=== PATIENT | male | born 1950 | race Caucasian/White ===

== ENCOUNTER 2017-04-09 07:41 | Day surgery (SDC) | payer BC ==
[~2017-04-09] VITALS: Ht 172.7 cm; Wt 92.5 kg
[~2017-04-09 07:41] MED LIST: ASPI81 PO; EFFIENT PO; NITR0.4S SL; NORV2.5T11 PO; RANEXA PO; ROSU40 PO; TOPR100T15 PO
[2017-04-09] MEDS ORDERED: IOHEXOL 350 MG/ML 100 ML BTL (for Cath Lab) OTHER ONE (07:42)
[2017-04-09 08:14] VITALS: BP 144/87; PULSE 64; RESP 18; TEMP 98.1; O2SAT 99
[2017-04-09] MEDS ORDERED: TAMS0.4C4 PO (08:20)
[2017-04-09] MEDS ORDERED: ASPI-516 CHEW (08:20)
[2017-04-09] MEDS ORDERED: AMLO5TAB2 PO (08:20)
[2017-04-09] MEDS ORDERED: PLAV75TA29 PO (08:20)
[2017-04-09] MEDS ORDERED: NITR0.4D T-DERMAL (08:20)
[2017-04-09] MEDS ORDERED: METO1TAB43 PO (08:20)
[2017-04-09] MEDS ORDERED: NORV2.5T PO (08:20)
[2017-04-09] MEDS ORDERED: ATOR80TA45 PO (08:20)
[2017-04-09 08:21] LABS: AUTOMATED NEUTROPHIL # 2.6 TH/MM3 (1.8-7.7); BASOPHIL # 0.1 TH/MM3 (0-0.2); EOSINOPHIL # 0.2 TH/MM3 (0-0.4); EOSINOPHIL % 3.1 % (0.0-4.0); HEMATOCRIT 44.5 % (39.0-51.0); HEMO FLAGS DIFF FINAL; LYMPH % 34.8 % (9.0-44.0); LYMPHOCYTE # 1.8 TH/MM3 (1.0-4.8); MEAN CELL VOLUME 91.3 FL (80.0-100.0); MEAN CORPUSCULAR HEMOGLOBIN 31.1 PG (27.0-34.0); MEAN CORPUSCULAR HGB CONC 34.1 % (32.0-36.0); MONO % 10.9 % (0.0-8.0); NEUT % 50.2 % (16.0-70.0); PLATELET COUNT 164 TH/MM3 (150-450); RED BLOOD COUNT 4.88 MIL/MM3 (4.50-5.90); RED CELL DISTRIBUTION WIDTH 13.2 % (11.6-17.2); WHITE BLOOD COUNT 5.2 TH/MM3 (4.0-11.0)
[2017-04-09 08:34] LABS: APTT (PATIENT) 26.6 SEC (24.3-30.1); PROTHROMBIN TIME - PATIENT 11.4 SEC (9.8-11.6)
[2017-04-09 08:41] LABS: BICARBONATE 30.7 MEQ/L (21.0-32.0); POTASSIUM 3.4 MEQ/L (3.5-5.1)
[2017-04-09] MEDS ORDERED: ASPIRIN 325 MG TAB PO SCH (09:00)
[2017-04-09] MEDS ORDERED: diphenhydrAMINE HCL 50 MG/ML VIAL IV PUSH SCH (09:00)
[2017-04-09] MEDS ORDERED: methylPREDNISolone SOD SUCC 40 MG/1 ML VIAL IV PUSH SCH (09:00)
[2017-04-09] MEDS ORDERED: NS 1000P @30 MLS/HR (KVO) IV SCH (09:00)
[2017-04-09] MEDS ORDERED: HEPARIN-NS/PF INJ 1,000 ML ONE (09:45)
[2017-04-09] MEDS ORDERED: MIDAZOLAM HCL 2 MG/2 ML VIAL ONE ×2 (09:47→10:33)
[2017-04-09] MEDS ORDERED: POTASSIUM CHLOR 20 MEQ PREMIX 100 ML IV ONE (10:00)
[2017-04-09] MEDS ORDERED: BIVALIRUDIN 250 MG VIAL ONE (10:28)
[2017-04-09] MEDS ORDERED: MORPHINE SULFATE 8 MG/ML INJ ONE (10:59)
[2017-04-09] MEDS ORDERED: CLOPIDOGREL 300 MG TAB ONE (11:04)
--- NOTE | 2017-04-09 11:20 | CATHPROC ---
[email or web address] HIS Report Study Information Study Number Admission Scheduled Start Study Start [id number] Apr 09 2017 7:41AM 04/09/2017 Apr 09 2017 9:34AM [place] Service Cardiac Catheterization Admit Source Facility Department Other [facility] - Junior Software Engineer Physician and Clinical Staff Initial Benjamin Aj Cloth Handler Amanuel RN, Chencho Cloth HandlerDomonique Melendez BSN Recorder Roro Martinez,RT(R) (BS) ScrJuliette Garcia,RT(R) Procedures Performed Procedure Location (Site) Vessel Name Coronary Angiograms LCA Left Coronary Coronary Angiograms RCA Right Coronary Coronary Angiograms AREVALO-LAD Left Coronary Drug Eluting Inflatio AREVALO-LAD Left Coronary IVUS Fem Art (right) Femoral Art L Heart Cath Wire insertion Fem Art (right) Femoral Art Equipment Time Coagulator Description Size Mfg Part Number Used/Scraped TRANSDUCER, OLU [id number] 09:34 ELIKE * Used W/STOCKCOCK *[id number] 10:29 [employer]more WIRE, CHOICE PT 182CM 182CM Used *[id number] *[id number] *[id number] [id number] *[id number] [id number] *[id number] 11:00 DAIG/ST. TWYLA MEDICAL ANGIOSEAL, FR6 VIP FR 6 Used *[id number] 09:34 MEDLINE INDUSTRIES PACK, CCL CUSTOM * Used *[id number] 09:34 MEDLINE PACER PEN, SKIN DUAL W/ RULER * Used *[id number] 10:47 MEDTRONIC STENT, 3.5 12MM JAYLA 3.5 12MM Used *[id number] 10:58 [employer] STENT, 3.5 8MM JAYLA 3.5 8MM Used *[id number] 10:48 [employer] MEDICAL 30 JCARLOS INDEFLATOR Used *[id number] 09:34 [employer] MEDICAL SHEATH, FR6.5 PRELUDE 11CM FR 6.5 038ACT Used *[id number] 09:34 [employer] MEDICAL WIRE, 3MMJ .035 180CM 180CM Used *[id number] 09:34 NAMIC MANIFOLD, 4 PORT * Used *[id number] 09:34 [employer]COMED OMNIPAQUE, 350 MG, 100ML 100ML [id number] Used [id number] 09:34 [employer] MEDICAL BLANKET,WARM AIR CCL * Used *[id number] CATHETER, [employer] [place] [id number] 10:33 [employer]OL[employer] Used IMAGING *[id number] Equipment Model, Serial, Lot Number and Expiration Data Description Model Number Serial Number Lot Number Expiration Date ANGIOSEAL, MARIPOSA VIP [id number] 12-09-2017 STENT, 3.5 12MM JAYLA [id number] 11-28-2018 History: Current Medications Medication Dosage/Unit Route Frequency Last Date/Time Taken Statins (any) Beta Stanislav ASA EFFIENT History: Allergies Allergy Reaction iodine History: Risk Factors Family History of Hypertension Dyslipidemia Previous VT Previous Heart Failure Premature CAD Yes Yes No No No Prior Valve Prior PCI Prior CABG Surgery No Yes Yes Cerebrovascular Peripheral Artery Chronic Lung On Dialysis Diabetes Disease Disease Disease No No No No No History: Stress Tests Stress or Imaging Studies Performed No History: Other Current Smoker No Labs Hgb (g/dl) Hct (%) WBC (l/cumm) Platelets (thousands) 11.60-17.00 35.00-51.00 4.00-11.00 150.00-450.00 15.2 44.5 5.2 164 Glucose (mg/dl) BUN (mg/dl) Creatinine (mg/dl) BUN:Creatinine (1:x) 74.00-106.00 7.00-18.00 0.50-1.30 10.00-20.00 114 13 1.3 10 Na (meq/l) K (meq/l) 136.00-145.00 3.50-5.10 139 3.4 INR (PTT:PT) 0.90-1.10 1 CPK-MB (ng/ML) 0.50-3.60 Not Drawn Medication Medication Total Dose (Bolus/Oral) Medication Total Dosage/Unit 1% XYLOCAINE 20 mL ANGIOMAX BOLUS 13.9 mL MORPHINE 2 mg NTG (IC) 150 mcg PLAVIX 300 mg POTASSIUM CHLORIDE 10 meq/hr VERSED 3 mg Medications (Bolus/Oral) Medication Time Given Dosage/Unit Administered By Reason POTASSIUM CHLORIDE 04/09/2017 9:52:58 AM 10 meq/hr Chencho Vital RN 10 meq/hr POTASSIUM CHLORIDE given in lab by Chencho Vital RN in Left Antecubital via Peripheral IV. 04/09/2017 10:06:48 VERSED 1 mg Amanuel PALOMARES, Chencho AM 1 mg VERSED given in lab by Amanuel PALOMARES, Chencho in Left Antecubital via Peripheral IV. 04/09/2017 10:08:40 VERSED 1 mg Amanuel PALOMARES, Chencho AM 1 mg VERSED given in lab by Chencho Vital RN in Left Antecubital via Peripheral IV. 04/09/2017 10:09:10 1% XYLOCAINE 20 mL Amanuel PALOMARES, Chencho AM 20 mL 1% XYLOCAINE given in lab by Chencho Vital RN in Left Antecubital via Subcutaneous. 04/09/2017 10:29:53 ANGIOMAX BOLUS 13.9 mL Amanuel PALOMARES, Chencho AM 13.9 mL ANGIOMAX BOLUS given in lab by Chencho Vital RN in Left Antecubital via Peripheral IV. 04/09/2017 10:40:47 VERSED 1 mg Amanuel PALOMARES, Chencho AM 1 mg VERSED given in lab by Chencho Vital RN in Left Antecubital via Peripheral IV. 04/09/2017 10:48:22 NTG (IC) 150 mcg Benjamin Myrick AM 150 mcg NTG (IC) given in lab by Benjamin Myrick via Intra-coronary. 04/09/2017 11:06:22 PLAVIX 300 mg Chencho Vital RN AM 300 mg PLAVIX given in lab by Chencho Vital RN via Oral. 04/09/2017 11:11:54 MORPHINE 2 mg Amanuel PALOMARES, Chencho AM 2 mg MORPHINE given in lab by Chencho Vital RN in Left Antecubital via Peripheral IV. Medication (Drip) Medication Time Given Dosage/Unit Concentration/Unit Diluent (ml) Solution 04/09/2017 10:33:52 ANGIOMAX DRIP 1.755 mg/kg/hr 250 mg 50 NaCl .9 AM 1.755 mg/kg/hr ANGIOMAX DRIP given in lab by Chencho Vital RN in Left Antecubital via Peripheral IV. P ump/Drip Flow = 32.4 ml/hr using NaCl .9 with a concentration of 250 mg in 50 ml. ANGIOMAX DRIP 04/09/2017 11:02:07 0 units/hr 0 STOPPED AM 0 units/hr ANGIOMAX DRIP STOPPED given by Chencho Vital RN. Pump/Drip Flow = 0 ml/hr using [Solution N petty]. IV Solutions 04/09/2017 9:45:33 AM 0 mL (IV) 500 NaCl .9 Patient arrived on IV Solutions in Left Antecubital via Peripheral IV. Pump/Drip Flow = 30 ml/hr usin g NaCl .9. Initial Case Assessment Cardiovascular HR Rhythm NIBP Chest Pain 86 reg 133/86 0 Edema Present Skin color Skin None Normal Warm Dry Circulatory - Right Pulses Dorsalis Pedis Femoral 2 2 Scale (0,1,2,3,4,d) Circulatory - Left Pulses Dorsalis Pedis Femoral 2 2 Scale (0,1,2,3,4,d) Circulatory - Lower Extremities Color Lower Right Color Lower Left Normal Normal Neurological State Oriented to time-place- Alert Moves all extremities person Respiration - General Respiration Rate SpO2 (%) (B/min) 15 98 Chronological Log Time Study Chronological Log 9:42:07 Patient arrived via Bed. 9:42:11 Patient Name, D.O.B, / Armband Verified By R.N. 9:42:13 Consent signed by the physician and the patient and verified by the Junior Software Engineer staff. 9:43:23 Pt was premedicated for iodine allergy in DOCU prior to transport to labor arbitrator hearing office 9:45:17 Pre-op and post- op instructions given; patient acknowledges understanding of instructions. 9:45:18 Verbal Stimulation=2 Physical Stimulation=2 Airway=2 Respiration=2 TOTAL=8. (0=absent, 1=li mited, 2=present) 9:45:19 Presedation assessment performed by Junior Software Engineer RN. 9:45:27 Patient has been NPO for More than 6Hrs. 9:45:28 Skin Breakdown none per pt 9:45:28 Patient Warmer Placed on the Table. 9:45:32 Gaby Prominences Protected 9:45:33 A # 20 IV was noted in the Antecubital (left). Grade = 0 9:45:33 Patient arrived on IV Solutions in Left Antecubital via Peripheral IV. Pump/Drip Flow = 30 ml/hr using NaCl .9. 9:45:34 History and physical on the chart or being dictated. Assessment: Initial Case, HR=86 BPM, Rhythm=reg, IFJI=150/86 mmhg, Chest Pain=0, Edema=None, Co magy=Normal, Skin = Warm, Dry Right Pulses: Yonatan Ped=2, Femoral=2 Left Pulses: Yonatan Ped=2, Femoral=2 9:45:36 Lower Right Extremities: Color=Normal Lower Left Extremities: Color=Normal Neurological: State=Alert, Ox3, STROUD Respiration: Resp=15 B/min, SpO2=98 % Vitals capture started with the following parameters, Patient=Adult, Interval=5 min, Initial Pr nkmjrd=234 mmHg, 9:49:19 Deflation Rate=5 mmHg, Cuff placed on Left Arm 9:50:03 HR=82 bpm, OEIA=685/86 mmhg, SpO2=99.0 %, Resp=16 B/min, Pain=0, Sue=10, Scott=2 9:52:42 Bilateral groins prepped with 2% chlorhexidine, and draped after a 3 minute waiting time. 9:52:58 10 meq/hr POTASSIUM CHLORIDE given in lab by Chencho Vital RN in Left Antecubital via Periphe ral IV. 9:54:58 HR=88 bpm, IMNH=939/84 mmhg, SpO2=99.0 %, Resp=11 B/min, Pain=0, Sue=10, Scott=2 9:56:33 Reference ECG taken 9:56:54 Pressure channel 1 zeroed. 9:57:07 MD paged 10:00:34 MD arrived 10:00:38 HR=73 bpm, NSCW=021/51 mmhg, SpO2=94.0 %, Resp=12 B/min, Pain=0, Sue=10, Scott=2 Time Out. Correct patient, correct procedure, correct physician, power injector not loaded with contrast with surgical 10:05:04 team present. Time Out Concurred by MD and individual staff in procedure. 10:05:15 Case Start 10:05:19 HR=74 bpm, ZTSZ=580/89 mmhg, SpO2=97.0 %, Resp=17 B/min, Pain=0, Sue=10, Scott=2 10:06:48 1 mg VERSED given in lab by Chencho Vital RN in Left Antecubital via Peripheral IV. 10:08:40 1 mg VERSED given in lab by Chencho Vital RN in Left Antecubital via Peripheral IV. 10:09:10 20 mL 1% XYLOCAINE given in lab by Chencho Vital RN in Left Antecubital via Subcutaneous. 10:09:57 HR=75 bpm, OEUH=867/80 mmhg, SpO2=95.0 %, Resp=15 B/min, Pain=0, Seu=10, Scott=2 10:10:26 Access site was Right Femoral Artery. 10:10:45 A SHEATH, FR6.5 PRELUDE 11CM FR 6.5 was advanced into the Fem Art (right) using the Percuta neous technique. A JL 5.0 INFINITI CATHETER FR 6 was advanced over a wire. OMNIPAQUE, 350 MG, 100ML 100ML was us ed for 10:11:39 injections. Recorded Pressure: Ao, HR=73, Condition=Condition 1 10:13:04 (Aorta) Ao 112/70/89 10:13:43 The LCA was injected and visualized at various angles. OMNIPAQUE, 350 MG, 100ML 100ML used . 10:14:58 HR=74 bpm, RNNZ=170/79 mmhg, SpO2=96.0 %, Resp=15 B/min, Pain=0, Sue=10, Scott=2 10:15:08 Catheter was removed A 3DRC INFINITI CATHETER FR 6 was advanced over a wire. OMNIPAQUE, 350 MG, 100ML 100ML was used for 10:15:10 injections. 10:17:14 The RCA was injected and visualized at various angles. OMNIPAQUE, 350 MG, 100ML 100ML used . 10:19:13 Catheter was removed A PANKAJ INFINITI CATHETER FR 6 was advanced over a wire. OMNIPAQUE, 350 MG, 100ML 100ML was used for 10:19:14 injections. 10:19:55 HR=77 bpm, LKVF=749/78 mmhg, SpO2=94.0 %, Resp=18 B/min, Pain=0, Sue=10, Scott=2 10:22:40 The AREVALO-LAD was injected and visualized at various angles. OMNIPAQUE, 350 MG, 100ML 100ML used. 10:25:00 HR=76 bpm, DEHH=107/78 mmhg, SpO2=95.0 %, Resp=12 B/min, Pain=0, Sue=10, Scott=2 10:26:37 Catheter was removed 10:29:53 HR=75 bpm, DCVV=647/90 mmhg, SpO2=89.0 %, Resp=11 B/min, Pain=0, Sue=10, Scott=2 10:29:53 13.9 mL ANGIOMAX BOLUS given in lab by Chencho Vital RN in Left Antecubital via Peripheral I V. 10:30:43 A PANKAJ GUIDE CATHETER FR 6 was advanced over a wire. OMNIPAQUE, 350 MG, 100ML 100ML was used for injections. 1.755 mg/kg/hr ANGIOMAX DRIP given in lab by Chencho Vital RN in Left Antecubital via Peripheral IV. Pump/Drip Flow = 10:33:52 32.4 ml/hr using NaCl .9 with a concentration of 250 mg in 50 ml. 10:34:24 A WIRE, 3MMJ .035 180CM 180CM was inserted via Fem Art (right). 10:35:00 HR=72 bpm, MLGD=455/76 mmhg, SpO2=94.0 %, Resp=21 B/min, Pain=0, Sue=10, Scott=2 10:37:29 A WIRE, CHOICE PT 182CM 182CM was inserted via Fem Art (right). 10:39:11 An CATHETER, [employer] [place] [employer] was advanced through the lesion. Images saved onto IVUS hard drive 10:39:57 HR=71 bpm, WDIH=749/79 mmhg, SpO2=92.0 %, Resp=22 B/min, Pain=0, Sue=10, Scott=2 10:40:47 1 mg VERSED given in lab by Chencho Vital RN in Left Antecubital via Peripheral IV. 10:44:04 IVUS catheter removed 10:45:01 HR=74 bpm, MWDY=017/76 mmhg, SpO2=90.0 %, Resp=20 B/min, Pain=0, Sue=10, Scott=2 A STENT, 3.5 12MM JAYLA 3.5 12MM was advanced through a PANKAJ GUIDE CATHETER FR 6 over a WIRE, CHO ICE PT 10:46:08 182CM 182CM. A STENT, 3.5 12MM JAYLA 3.5 12MM was deployed using a 30 JCARLOS INDEFLATOR at 16 atmospheres for 17 seconds in 10:47:32 the AREVALO-LAD. 10:48:22 150 mcg NTG (IC) given in lab by Benjamin Myrick via Intra-coronary. 10:49:21 Delivery device removed 10:49:58 HR=77 bpm, YNVX=460/78 mmhg, SpO2=88.0 %, Resp=25 B/min, Pain=0, Sue=10, Scott=2 10:50:33 An CATHETER, [employer] [place] [employer] was advanced through the lesion. Images saved onto IVUS hard drive 10:54:49 IVUS catheter removed 10:55:01 HR=76 bpm, QMIV=330/78 mmhg, SpO2=91.0 %, Resp=22 B/min, Pain=0, Sue=10, Scott=2 A STENT, 3.5 8MM JAYLA 3.5 8MM was advanced through a PANKAJ GUIDE CATHETER FR 6 over a WIRE, CHOIC E PT 10:55:28 182CM 182CM. A STENT, 3.5 8MM JAYLA 3.5 8MM was deployed using a 30 JCARLOS INDEFLATOR at 15 atmospheres for 20 s econds in the 10:56:08 AREVALO-LAD. 10:57:47 Delivery device removed 10:57:53 Catheter was removed 10:57:57 Wire removed 10:59:15 An injection in the Fem Art (right) was made through the SHEATH, FR6.5 PRELUDE 11CM FR 6.5. 10:59:58 HR=83 bpm, HHWJ=780/81 mmhg, SpO2=92.0 %, Resp=24 B/min, Pain=0, Sue=10, Scott=2 11:02:07 0 units/hr ANGIOMAX DRIP STOPPED given by Chencho Vital RN. Pump/Drip Flow = 0 ml/hr using [ Solution Name]. 11:04:33 Case End 11:05:01 HR=71 bpm, AJYV=324/65 mmhg, SpO2=92.0 %, Resp=20 B/min, Pain=0, Sue=10, Scott=2 11:06:21 Catheter(s) removed without difficulty 11:06:22 300 mg PLAVIX given in lab by Chencho Vital RN via Oral. 11:06:25 Sterile dressing applied to site 11:06:26 No case complications noted. 11:06:32 A Left Heart Cath was performed. 11:06:56 DOCU called. Spoke to Gabino. 11:09:58 HR=69 bpm, IWOH=760/75 mmhg, SpO2=91.0 %, Resp=14 B/min, Pain=0, Sue=10, Scott=2 11:11:54 2 mg MORPHINE given in lab by Chencho Vital RN in Left Antecubital via Peripheral IV. 11:12:53 Vitals capture stopped. 11:13:46 Patient moved to [facility] End Study - Contrast Media Used In Study Contrast Total Opened (mL) Total Used (mL) Total Wasted (mL) Omnipaque 100 100 0 End Study - Maximum Contrast Load Max Contrast Load (mL) 355.1 End Study - Radiation Exposure Fluoro Time (minutes) 13.5 End Study - Patient Disposition Complications Transferred To Interventional Outcome No Junior Software Engineer Holding successful
[2017-04-09] MEDS ORDERED: BIVALIRUDIN INJ 250 MG in SODIUM CHLORIDE 0.9% INJ 50 ML IV SCH (11:23)
[2017-04-09] MEDS ORDERED: SODIUM CHLOR 0.9% 1000 ML INJ 1,000 ML IV SCH (11:23)
[2017-04-09] MEDS ORDERED: SODIUM CHLORIDE 0.9% FLUSH 10 ML FLUSH IV FLUSH PRN (11:30)
[2017-04-09] MEDS ORDERED: oxyCODONE/ACETAMINOPHEN 5 MG/325 MG TAB PO PRN (11:30)
[2017-04-09] MEDS ORDERED: MISC INFORMATION XX ONE (11:30)
[2017-04-09] MEDS ORDERED: ACETAMINOPHEN 325 MG TAB PO PRN (11:30)
[2017-04-09] MEDS ORDERED: ONDANSETRON HCL 4 MG/2 ML VIAL IV PUSH PRN (11:30)
--- NOTE | 2017-04-09 11:44 | MA ---
cc: JYOTSNA BANUELOS M.D. DATE: 04/09/2017 PROCEDURE PERFORMED 1. Coronary angiography. 2. Left internal mammary arteriography. 3. Intravascular ultrasound and drug-eluting stent implantation of the left internal mammary bypass graft. BRIEF HISTORY Fredis Sahu is a 66-year-old man with premature coronary artery disease. He had bypass surgery at age 46. By 2003 the vein graft to the right coronary artery had closed. He has had three separate stent procedures of the right coronary artery. He had two stent procedures of the vein graft to the diagonal and obtuse marginal branch which was found to be completely closed on a cath in May 2015. He has had severe angina and has already been through the first round of EECP . After the second round of EECP he still had class IV angina and for this reason cardiac catheterization was advised. DESCRIPTION OF PROCEDURE The patient was brought to the cardiac cath lab radiology technician in a fasting state. The right groin was prepped and draped in sterile fashion. Using 1% lidocaine for local anesthesia a 6.5 Indian sheath was inserted in the right femoral artery requiring only a single stick. Coronary angiography was then completed using a left 5 Nain for the left coronary artery and a 3-D RC for the right coronary artery. Imaging of the left internal mammary bypass graft was then performed using an PANKAJ catheter. He was found to have a severe stenosis in the proximal portion of the graft with the appearance of a dissection. Intravascular ultrasound confirmed a severe stenosis with a flap dissection. Intravenous Angiomax was started. I used a 6 Indian PANKAJ guiding catheter to engage the mammary. I crossed the lesion with a Choice Floppy wire. IVUS was performed. I stented it with a 3.5 x 12 mm Resolute Carter stent at 15 atmospheres. There was some plaque at the end of the stent so I placed a second 3.5 x 8 mm Resolute [place] extent in overlapping fashion and deployed that also at 15 atmospheres. Angiography demonstrates a good result. The patient tolerated the procedure well. The guide was removed. The sheath was removed. An Angio-Seal device was deployed with good hemostasis. There were no complications. FINDINGS HEMODYNAMICS Aortic pressure is 112/70 with a mean of 89. CORONARY ANGIOGRAPHY The left main coronary artery is large and normal-appearing. The left anterior descending artery is totally occluded after a couple of small septals and a 50% small disease diagonal branch. The circumflex artery has occlusion of the obtuse marginal branch. The circumflex is fairly large with irregularities and gives off two posterolateral branches. The first posterolateral branch has 20% disease. The second posterolateral branch has at least 30% disease. The right coronary is a dominant vessel, has diffuse irregularities but no significant stenosis is seen. There may be about 20% proximal narrowing and 30% narrowing before the crux. RESULTS OF INTERVENTION Following stenting of the proximal left internal mammary graft the stenosis and dissection has been completely relieved with no residual stenosis. PLAN The patient will be continued on aspirin and Plavix indefinitely. Anticipate discharge home this evening if stable. MD ULISES Dupont/OSVALDO /11:13 AM /11:23 AM
--- NOTE | 2017-04-09 13:29 | EKG ---
Date Performed: 04/09/2017 Time Performed: 08:24:12 PTAGE: 66 years EKG: Sinus rhythm Leftward axis Right bundle branch block Lateral ST-T changes are nonspecific Abnormal ECG Compared t o prior electrocardiogram, Right bundle branch block is present. PREVIOUS TRACING : 12/13/2009 09.13 DOCTOR: Keenan Whitney Interpretating Date/Time 04/09/2017 13:28:02
[2017-04-09] MEDS ORDERED: SODIUM CHLORIDE 0.9% FLUSH 10 ML FLUSH IV FLUSH SCH (21:00)
[2017-04-10] MEDS ORDERED: CLOPIDOGREL 75 MG TAB PO SCH (09:00)
[2017-04-10] MEDS ORDERED: ASPIRIN 81 MG CHEW TAB PO SCH (09:00)
== END 2017-04-09 18:15 | disposition home or self-care (01) ==
LOC: HCAT 07:41 → HDIC 07:42 → HCAT 18:15
PROVIDERS: ATTEND Internal Medicine Cardiovascular Disease
DX: I25.110 Atherosclerotic heart disease of native coronary artery with unstable angina pectoris (principal); I10 Essential (primary) hypertension; E78.00 Pure hypercholesterolemia, unspecified; E66.9 Obesity, unspecified; Z68.31 Body mass index [BMI] 31.0-31.9, adult
CPT/HCPCS: 80048; 85025; 85610; 85730; 92928; 92978; 93005; 93454; 99152; 99153; C1753; C1760; C1769; C1874; C1887; C1893; G0269; J0583; J1200; J1644; J2250; J2270; J2920; J3480; J7030; Q9967

== ENCOUNTER 2017-09-24 06:41 | Day surgery (SDC) | payer BC ==
[~2017-09-24 06:41] MED LIST changes: +AMLO5TAB2 PO; +ASPI-516 CHEW; -ASPI81 PO; +ATOR80TA45 PO; -EFFIENT PO; +METO1TAB43 PO; +NITR0.4D T-DERMAL; -NITR0.4S SL; +NORV2.5T PO; -NORV2.5T11 PO; +PLAV75TA29 PO; -RANEXA PO; -ROSU40 PO; +TAMS0.4C4 PO; -TOPR100T15 PO
[2017-09-24] MEDS ORDERED: IOHEXOL 350 MG/ML 100 ML BTL (for Cath Lab) OTHER ONE (06:42)
[2017-09-24 07:32] VITALS: BP 167/88; PULSE 64; RESP 18; TEMP 97.8; O2SAT 98
[2017-09-24 07:45] LABS: AUTOMATED NEUTROPHIL # 2.3 TH/MM3 (1.8-7.7); BASOPHIL # 0.1 TH/MM3 (0-0.2); BASOPHIL % 1.3 % (0.0-2.0); EOSINOPHIL # 0.2 TH/MM3 (0-0.4); EOSINOPHIL % 3.8 % (0.0-4.0); HEMATOCRIT 43.3 % (39.0-51.0); HEMOGLOBIN 14.5 GM/DL (13.0-17.0); LYMPH % 35.1 % (9.0-44.0); LYMPHOCYTE # 1.6 TH/MM3 (1.0-4.8); MEAN CELL VOLUME 90.2 FL (80.0-100.0); MEAN CORPUSCULAR HEMOGLOBIN 30.1 PG (27.0-34.0); MEAN CORPUSCULAR HGB CONC 33.4 % (32.0-36.0); MEAN PLATELET VOLUME 8.1 FL (7.0-11.0); MONOCYTE # 0.5 TH/MM3 (0-0.9); NEUT % 49.8 % (16.0-70.0); PLATELET COUNT 165 TH/MM3 (150-450); RED BLOOD COUNT 4.81 MIL/MM3 (4.50-5.90); RED CELL DISTRIBUTION WIDTH 13.6 % (11.6-17.2); WHITE BLOOD COUNT 4.6 TH/MM3 (4.0-11.0)
[2017-09-24 08:06] LABS: BICARBONATE 29.4 MEQ/L (21.0-32.0); CALCIUM 8.5 MG/DL (8.5-10.1); CREATININE 1.23 MG/DL (0.60-1.30)
[2017-09-24] MEDS ORDERED: MIDAZOLAM HCL 2 MG/2 ML VIAL ONE (10:46)
[2017-09-24] MEDS ORDERED: HEPARIN SODIUM - IV 10,000 UNITS/10 ML VIAL ONE (10:46)
[2017-09-24] MEDS ORDERED: NITROGLYCERIN INJ 5 ML ONE (10:46)
[2017-09-24] MEDS ORDERED: HEPARIN-NS/PF FLUSH BAG 2,000 ML IV FLUSH ONE (10:46)
[2017-09-24] MEDS ORDERED: diphenhydrAMINE HCL 50 MG/ML VIAL ONE (10:57)
[2017-09-24] MEDS ORDERED: methylPREDNISolone SOD SUCC 125 MG/2 ML VIAL ONE (10:58)
[2017-09-24] MEDS ORDERED: SODIUM CHLOR 0.9% 1000 ML INJ 1,000 ML IV SCH (11:43)
[2017-09-24] MEDS ORDERED: MISC INFORMATION XX ONE (11:45)
[2017-09-24] MEDS ORDERED: SODIUM CHLORIDE 0.9% FLUSH 10 ML FLUSH IV FLUSH PRN (11:45)
[2017-09-24] MEDS ORDERED: BACITRACIN OINT 0.9 GM PKT TOP ONE (11:45)
[2017-09-24] MEDS ORDERED: METOCLOPRAMIDE HCL 10 MG/2 ML VIAL IV PUSH PRN (11:45)
--- NOTE | 2017-09-24 12:00 | CATHPROC ---
IT'SUGAR HIS Report Study Information Study Number Admission Scheduled Start Study Start [id number] Sep 24 2017 6:41AM 09/24/2017 Sep 24 2017 10:40AM [place] Service Cardiac Catheterization Admit Source Facility Department Emergency department [facility] - Crime Lab Analyst Physician and Clinical Staff Initial Benjamin Aj Course Instructor Juliette Meneses,RT(R) Recorder Tania Farley ,RT(R) Scrub Yu Null RN Procedures Performed Procedure Location (Site) Vessel Name Coronary Angiograms LCA Left Coronary Coronary Angiograms RCA Right Coronary Coronary Angiograms AREVALO-LAD Left Coronary L Heart Cath Equipment Time Wardrobe Supervisor Description Size Mfg Part Number Used/Scraped TRANSDUCER, TRUWAVE [id number] 10:53 THOMAS PALENCIA * Used W/STOCKCOCK *[id number] *[id number] [id number] *[id number] [id number] *[id number] [id number] *[id number] 10:53 [employer]X IND[employer]ES PACK, CCL CUSTOM * Used *[id number] 10:53 [employer]X PACER PEN, SKIN DUAL W/ RULER * Used *[id number] 10:53 [employer] SHEATH, FR6.5 PRELUDE 11CM FR 6.5 038ACT Used *[id number] 10:53 [employer] WIRE, 3MMJ .035 180CM 180CM Used *[id number] 10:53 NAMIC MANIFOLD, 4 PORT * Used *[id number] 10:53 [employer]COMED OMNIPAQUE, 350 MG, 150ML 150ML [id number] Used [id number] 10:53 [facility] BLANKET,WARM AIR CCL * Used *[id number] History: Current Medications Medication Dosage/Unit Route Frequency Last Date/Time Taken Statins (any) Beta Stanislav NORVASC ASA PLAVIX NTG Patch History: Allergies Allergy Reaction No Known Allergies iodine History: Risk Factors Hypertension Dyslipidemia Previous KS Previous Heart Failure Yes Yes No No Prior Valve Prior PCI Prior PCIDate Prior CABG Prior CABGDate Surgery No Yes 04/09/2017 Yes 01/10/1997 Cerebrovascular Peripheral Artery Chronic Lung On Dialysis Diabetes Disease Disease Disease No No No No No History: Stress Tests Stress or Imaging Studies Performed Yes Standard Exercise Stress Test No Stress Echo No Stress Test SPECT Stress Test SPECT Result Stress Test SPECT Ischemia Risk/Extent Yes Positive High Stress Test CMR No Cardiac CTA Coronary Calcium Score No No History: Other Current Smoker No Labs Hgb (g/dl) Hct (%) WBC (l/cumm) Platelets (thousands) 11.60-17.00 35.00-51.00 4.00-11.00 150.00-450.00 14.5 43.3 4.6 165 Glucose (mg/dl) BUN (mg/dl) Creatinine (mg/dl) BUN:Creatinine (1:x) 74.00-106.00 7.00-18.00 0.50-1.30 10.00-20.00 106 14 1.2 11.7 Na (meq/l) K (meq/l) 136.00-145.00 3.50-5.10 144 3.7 CPK-MB (ng/ML) 0.50-3.60 Not Drawn Medication Medication Total Dose (Bolus/Oral) Medication Total Dosage/Unit 1% XYLOCAINE 10 mL BENADRYL 50 mg SOLU-MEDROL 50 mg VERSED 2 mg Medications (Bolus/Oral) Medication Time Given Dosage/Unit Administered By Reason BENADRYL 09/24/2017 11:00:11 AM 50 mg Hesher, Yu 50 mg BENADRYL given in lab by Yu Null, MARIELLE via Peripheral IV. Ordered by Benjamin Myrick. SOLU-MEDROL 09/24/2017 11:01:18 AM 50 mg Hesher, Yu 50 mg SOLU-MEDROL given in lab by Yu Null, MARIELLE via Peripheral IV. Ordered by Bnejamin Myrick. VERSED 09/24/2017 11:13:35 AM 2 mg Hesher, Yu 2 mg VERSED given in lab by Yu Null, RN in Left Antecubital via Peripheral IV. Ordered by Benjamin Lockett. 1% XYLOCAINE 09/24/2017 11:14:23 AM 10 mL Benjamin Myrick 10 mL 1% XYLOCAINE given in lab by Benjamin Myrick in Right Groin via Subcutaneous. Ordered by Benjamin Myrick. Medication (Drip) Medication Time Given Dosage/Unit Concentration/Unit Diluent (ml) Solution IV Solutions 09/24/2017 10:49:08 AM 50 mL (IV) NaCl .9 Patient arrived on IV Solutions in Left Antecubital via Peripheral IV. Pump/Drip Flow using NaCl .9. Initial Case Assessment Cardiovascular HR Rhythm NIBP Chest Pain 70 sr 159/107 0 Edema Present Skin color Skin None Normal Warm Dry Circulatory - Right Pulses Dorsalis Pedis Femoral 2 2 Scale (0,1,2,3,4,d) Circulatory - Left Pulses Dorsalis Pedis Femoral 2 2 Scale (0,1,2,3,4,d) Neurological State Oriented to time-place- Alert Moves all extremities person Respiration - General Respiration Rate SpO2 (%) (B/min) 28 99 Final Case Assessment Cardiovascular HR Rhythm NIBP Chest Pain 70 sr 159/107 0 Edema Present Skin color Skin None Normal Warm Dry Circulatory - Right Pulses Dorsalis Pedis Femoral 2 2 Scale (0,1,2,3,4,d) Circulatory - Left Pulses Dorsalis Pedis Femoral 2 2 Scale (0,1,2,3,4,d) Neurological State Oriented to time-place- Alert Moves all extremities person Respiration - General Respiration Rate SpO2 (%) (B/min) 28 99 Chronological Log Time Study Chronological Log 10:44:57 Patient arrived via Bed. 10:44:58 Patient Name, D.O.B, / Armband Verified By R.N. 10:44:59 Consent signed by the physician and the patient and verified by the Crime Lab Analyst staff. 10:45:00 Pre-op and post- op instructions given; patient acknowledges understanding of instructions. Vitals capture started with the following parameters, Patient=Adult, Interval=5 min, Initial Pr bjyimg=723 mmHg, 10:48:29 Deflation Rate=5 mmHg, Cuff placed on Left Arm 10:48:58 Verbal Stimulation=2 Physical Stimulation=2 Airway=2 Respiration=2 TOTAL=8. (0=absent, 1=li mited, 2=present) 10:49:01 Patient has been NPO for More than 6Hrs. 10:49:02 Skin Breakdown- none per patient 10:49:04 Patient Warmer Placed on the Table. 10:49:05 HR=74 bpm, ARCA=191/107 mmhg, SpO2=99.0 %, Resp=11 B/min, Pain=0, Sue=10, Scott=2 10:49:07 Gaby Prominences Protected 10:49:08 A # 20 IV was noted in the Antecubital (left). Grade = 0 10:49:08 Patient arrived on IV Solutions in Left Antecubital via Peripheral IV. Pump/Drip Flow using NaCl .9. 10:49:09 History and physical on the chart or being dictated. Assessment: Initial Case, HR=70 BPM, Rhythm=sr, THBJ=136/107 mmhg, Chest Pain=0, Edema=None, Co magy=Normal, Skin = Warm, Dry Right Pulses: Yonatan Ped=2, Femoral=2 10:49:10 Left Pulses: Yonatan Ped=2, Femoral=2 Neurological: State=Alert, Ox3, STROUD Respiration: Resp=28 B/min, SpO2=99 % 10:54:30 Bilateral groins prepped with 2% chlorhexidine, and draped after a 3 minute waiting time. 10:54:56 HR=71 bpm, IUSZ=026/115 mmhg, ZxX6=334.0 %, Resp=13 B/min, Pain=0, Sue=10, Scott=2 10:55:28 Reference ECG taken 10:55:42 Reference ECG taken 10:58:13 Pressure channel 1 zeroed. 10:58:35 MD paged 10:59:20 HR=68 bpm, KEST=136/57 mmhg, SpO2=98.0 %, Resp=22 B/min, Pain=0, Sue=10, Scott=2 11:00:11 50 mg BENADRYL given in lab by Yu Null, MARIELLE via Peripheral IV. Ordered by Doug Myrick 11:01:18 50 mg SOLU-MEDROL given in lab by Yu Null RN via Peripheral IV. Ordered by Benjamin Myrick. 11:02:48 MD arrived. 11:04:37 HR=68 bpm, GZUH=968/97 mmhg, SpO2=99.0 %, Resp=13 B/min, Pain=0, Sue=10, Scott=2 11:09:12 HR=66 bpm, SQLI=823/105 mmhg, SpO2=96.0 %, Resp=25 B/min, Pain=0, Sue=10, Scott=2 Time Out. Correct patient, correct procedure, correct physician, power injector not loaded with contrast with surgical 11:12:13 team present. Time Out Concurred by MD and individual staff in procedure. 11:12:32 Case Start 11:13:35 2 mg VERSED given in lab by Yu Null, RN in Left Antecubital via Peripheral IV. Order ed by Benjamin Myrick. 11:14:11 HR=71 bpm, USOQ=672/102 mmhg, JqI5=509.0 %, Resp=15 B/min, Pain=0, Sue=10, Scott=2 11:14:23 10 mL 1% XYLOCAINE given in lab by Benjamin Myrick in Right Groin via Subcutaneous. Ordered b y Benjamin Myrick. 11:15:36 Access site was Right Femoral Artery. 11:15:48 A SHEATH, FR6.5 PRELUDE 11CM FR 6.5 was advanced into the Fem Art (right) using the Percuta neous technique. A JL 5.0 INFINITI CATHETER FR 6 was advanced over a wire. OMNIPAQUE, 350 MG, 150ML 150ML was us ed for 11:16:44 injections. Recorded Pressure: Ao, HR=68, Condition=Condition 1 11:18:04 (Aorta) Ao 166/88/121 11:18:15 The LCA was injected and visualized at various angles. OMNIPAQUE, 350 MG, 150ML 150ML used . 11:19:10 HR=69 bpm, IQWI=009/91 mmhg, SpO2=95.0 %, Resp=23 B/min, Pain=0, Sue=10, Scott=2 11:19:33 Catheter was removed A 3DRC INFINITI CATHETER FR 6 was advanced over a wire. OMNIPAQUE, 350 MG, 150ML 150ML was used for 11:20:40 injections. 11:21:08 The RCA was injected and visualized at various angles. OMNIPAQUE, 350 MG, 150ML 150ML used . 11:21:59 Catheter was removed A PANKAJ INFINITI CATHETER FR 6 was advanced over a wire. OMNIPAQUE, 350 MG, 150ML 150ML was used for 11:23:13 injections. 11:24:13 HR=73 bpm, SKWS=974/102 mmhg, SpO2=98.0 %, Resp=10 B/min, Pain=0, Sue=10, Scott=2 11:26:12 The AREVALO-LAD was injected and visualized at various angles. OMNIPAQUE, 350 MG, 150ML 150ML used. 11:27:15 Catheter was removed 11:29:14 HR=74 bpm, MWRE=628/102 mmhg, SpO2=99.0 %, Resp=10 B/min, Pain=0, Sue=10, Scott=2 11:34:13 HR=70 bpm, XSKT=155/102 mmhg, SpO2=99.0 %, Resp=13 B/min, Pain=0, Sue=10, Scott=2 11:35:41 An injection in the Fem Art (right) was made through the SHEATH, FR6.5 PRELUDE 11CM FR 6.5. 11:36:26 Case End Assessment: Final Case, HR=70 BPM, Rhythm=sr, LYEA=342/107 mmhg, Chest Pain=0, Edema=None, Col or=Normal, Skin = Warm, Dry Right Pulses: Yonatan Ped=2, Femoral=2 11:39:42 Left Pulses: Yonatan Ped=2, Femoral=2 Neurological: State=Alert, Ox3, STROUD Respiration: Resp=28 B/min, SpO2=99 % 11:39:45 HR=80 bpm, RKWS=652/84 mmhg, SpO2=97.0 %, Resp=7 B/min, Pain=0, Sue=10, Scott=2 11:40:10 Catheter(s) removed without difficulty 11:40:15 Sheath removed; pressure applied to access site. 11:40:22 Sterile dressing applied to site 11:40:23 No case complications noted. 11:40:24 Holding Area notified of successful intervention. 11:40:34 A Left Heart Cath was performed. 11:44:44 HR=66 bpm, LQQX=817/100 mmhg, SpO2=94.0 %, Resp=18 B/min, Pain=0, Sue=10, Scott=2 11:49:10 HR=65 bpm, XNMW=887/103 mmhg, SpO2=97.0 %, Resp=20 B/min, Pain=0, Sue=10, Scott=2 11:54:11 HR=66 bpm, NTPS=507/99 mmhg, SpO2=95.0 %, Resp=13 B/min, Pain=0, Sue=10, Scott=2 11:59:58 Patient moved to stretcher End Study - Contrast Media Used In Study Contrast Total Opened (mL) Total Used (mL) Total Wasted (mL) Omnipaque 90 90 0 End Study - Maximum Contrast Load Max Contrast Load (mL) 368.4 End Study - Radiation Exposure Fluoro Time (minutes) 4.2 End Study - Sheaths Sheaths Pulled By Sheath Hold Time (min) Donald Menesesey 16 End Study - Patient Disposition Complications Transferred To Interventional Outcome No Telemetry Bed No attempt made
--- NOTE | 2017-09-24 12:03 | MA ---
cc: Benjamin Myrick MD, Matthew MD DATE: 09/24/2017 PROCEDURES PERFORMED: Coronary angiography, left internal mammary bypass arteriography. BRIEF HISTORY: Fredis Sahu is a 67-year-old man who has had multiple revascularization procedures including bypass surgery and multiple stents. 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 He continues to have severe angina and underwent a recent nuclear stress test that was very abnormal and for this reason, cardiac catheterization was advised. DESCRIPTION OF PROCEDURE: The patient was brought to the cardiac catheterization lab in a fasting state. Using 1% lidocaine for local anesthesia, a 6-1/2 Vietnamese sheath was easily inserted into the right femoral artery. Coronary angiography was then completed using a left 5-Nain for the left coronary artery and a 3DRC for the right coronary artery. Angiography of the internal mammary bypass was performed using an PANKAJ catheter. I studied these films and elected medical management. The sheath is being pulled manually. FINDINGS: HEMODYNAMICS: 1. Aortic pressure is 166/88 with a mean of 121. 2. Coronary angiography: The left main coronary artery was large and normal. It bifurcates into the LAD and circumflex vessels. The LAD is totally occluded after a small septal and a small diagonal. The diagonal branch is less than 2 mm and diffusely diseased with 90% proximal stenosis. I thought this was too small to really intervene upon safely. The circumflex artery has occlusion of the major obtuse marginal branch. The distal circumflex after a small posterolateral branch has about 30% disease. The posterolateral branch has about 25% disease. The right coronary artery is dominant. The mid vessel has about 25% disease in between the previous stents. 3. Bypass grafts: The left internal mammary graft to the mid LAD is widely patent. The stents in the proximal portion of the mammary are widely patent. There may be about 10 to 20% stenosis before the stents. The remaining vein grafts he has are noted to be totally occluded. CONCLUSIONS: 1. Stable appearance of the previous left internal mammary artery stenting to the LAD. 2. Stable right coronary artery from previous procedures. 3. Mild disease of the distal circumflex best treated medically. 4. Severe disease of the diagonal branch that is less than 2 mm in size. We will continue medical management. MD ULISES Dupont/NIVIA , 11:42 AM , 12:03 PM
[2017-09-24] MEDS ORDERED: SODIUM CHLORIDE 0.9% FLUSH 10 ML FLUSH IV FLUSH SCH (21:00)
--- NOTE | 2017-09-24 22:15 | EKG ---
Date Performed: 09/24/2017 Time Performed: 07:42:18 PTAGE: 67 years EKG: Sinus bradycardia. Leftward axis Extensive ST-T changes are nonspecific Low QRS voltages in precordial leads Borderline ECG PREVIOUS TRACING : 04/09/2017 08.24 Compared to previous tracing, RBBB is no longer present DOCTOR: Juanjo Johnson Interpretating Date/Time 09/24/2017 22:15:01
== END 2017-09-24 17:53 | disposition home or self-care (01) ==
LOC: HCAT 06:41 → HDIC 06:41 → HCAT 17:53
PROVIDERS: ATTEND Internal Medicine Cardiovascular Disease
DX: I25.10 Atherosclerotic heart disease of native coronary artery without angina pectoris (principal); I10 Essential (primary) hypertension; I45.10 Unspecified right bundle-branch block; E78.00 Pure hypercholesterolemia, unspecified; Z79.01 Long term (current) use of anticoagulants; Z79.82 Long term (current) use of aspirin
CPT/HCPCS: 80048; 85025; 85730; 93005; 93454; 99152; 99153; C1769; C1893; J1200; J1644; J2250; J2930; Q9967